=== PATIENT | female | born 1955 | race Caucasian/White ===

== ENCOUNTER 2021-03-15 09:28 | Inpatient (IN) | payer MEDICARE ==
[2021-03-18] MEDS ORDERED: Bupivacaine PF 0.5% 30 ML VIAL ONE (06:22)
[2021-03-18] MEDS ORDERED: Protamine Sulfate 50 MG/5 ML VIAL ONE (06:22)
[2021-03-18] MEDS ORDERED: Dexamethasone 4 mg/ml Vial ONE (06:22)
[2021-03-18] MEDS ORDERED: EPINEPHrine 1 MG/ML AMP ONE (06:22)
[2021-03-18] MEDS ORDERED: Heparin 5,000 UNITS/ML VIAL ONE (06:22)
[2021-03-18] MEDS ORDERED: Fentanyl 250 MCG/5 ML VIAL ONE (07:00)
[2021-03-18] MEDS ORDERED: Phenylephrine 10 MG/ML VIAL ONE (07:01)
[2021-03-18] MEDS ORDERED: Clindamycin/D5W 900 mg/50 ml Premix Bag ONE (07:31)
[2021-03-18] MEDS ORDERED: Ondansetron PF 4 MG/2 ML Vial ONE (07:48)
[2021-03-18] MEDS ORDERED: Glycopyrrolate 0.2 MG/ML 5 ML SYRINGE ONE ×2 (07:48)
[2021-03-18] MEDS ORDERED: Rocuronium Bromide 10 MG/ML (10ML VIAL) ONE (07:48)
[2021-03-18] MEDS ORDERED: PROPOFOL 200 MG/20 ML VIAL ONE (07:48)
[2021-03-18] MEDS ORDERED: PHENYLEPHRINE-NS 100 MCG/ML 10 ML SYRINGE ONE ×2 (07:48→09:26)
[2021-03-18] MEDS ORDERED: Lidocaine 1% PF 5 ML VIAL ONE (07:48)
[2021-03-18] MEDS ORDERED: ePHEDrine 50 MG/ML VIAL ONE (07:48)
[2021-03-18] MEDS: Aspirin Chewable 81 MG TAB PO SCH (09:00)
[2021-03-18] MEDS ORDERED: Ondansetron PF 4 MG/2 ML Vial IVP PRN (09:20)
[2021-03-18] MEDS ORDERED: hydrALAZINE 20 MG/ML VIAL SLOW IVP PRN (09:20)
[2021-03-18] MEDS ORDERED: Phenylephrine 40 MG in Sodium Chloride 0.9% 250 ML 250 ML IVPB PRN ×2 (09:20→10:18)
[2021-03-18] MEDS ORDERED: Fentanyl 100 MCG/2 ML VIAL SLOW IVP PRN (09:20)
[2021-03-18] MEDS ORDERED: Nitroglycerin 50 MG/250 ML BOT 250 ML IVPB PRN (09:20)
[2021-03-18] MEDS ORDERED: Cetirizine HCl 10 MG TAB PO SCH (09:20)
[2021-03-18] MEDS ORDERED: [UNRECOGNIZED DRUG - REMARK] NASAL PRN (09:20)
[2021-03-18] MEDS ORDERED: Acetaminophen 325 MG TAB PO PRN (09:20)
[2021-03-18] MEDS ORDERED: ePHEDrine Sulfate 50 MG/10 ML VIAL ONE (09:26)
[2021-03-18] MEDS ORDERED: ceFAZolin 2 GM/Dextrose 50 ML IVPB ONE (14:06)
[2021-03-18] MEDS: ceFAZolin 2 GM/Dextrose 50 ML 2 GM in Premix Bag 1 BAG IVPB SCH ×2 (14:07→22:08)
[2021-03-18] MEDS: Sodium Chloride 0.9% 1,000 ML IV SCH (16:44)
[2021-03-18] MEDS ORDERED: Montelukast Sodium 10 mg Tablet PO SCH (21:00)
[2021-03-18] MEDS ORDERED: Atorvastatin Calcium 40 MG TAB PO SCH (21:00)
[2021-03-18 21:16] VITALS: BMI 30.5
[2021-03-19] MEDS: Sodium Chloride 0.9% 1,000 ML IV SCH ×2 (03:10→05:05)
[2021-03-19] MEDS: ceFAZolin 2 GM/Dextrose 50 ML 2 GM in Premix Bag 1 BAG IVPB SCH (05:07)
[2021-03-19 08:19] VITALS: TEMP 97.8
[2021-03-19] MEDS: Aspirin Chewable 81 MG TAB PO SCH (08:59)
[2021-03-19] MEDS ORDERED: Non-Formulary Item 1 EACH (Losartan Potassium [Losartan Potassium] 50 MG Tablet) PO SCH (09:00)
[2021-03-19] MEDS ORDERED: Loratadine 10 MG TAB PO SCH (09:00)
[2021-03-19] MEDS ORDERED: Fluticasone Propionate Nasal Spray 16 gm Bottle NASAL SCH (09:00)
[2021-03-19] MEDS ORDERED: Hydrochlorothiazide 25 MG TAB PO SCH (09:00)
[2021-03-19] MEDS ORDERED: Losartan 25 MG TAB PO SCH (09:00)
[2021-03-19] MEDS ORDERED: Non-Formulary Item 1 EACH (Mv-Mn/Folic Ac/Calcium/Vit K1 [Women's 50 Plus Multivit Tab] 1 PO SCH (09:00)
[2021-03-19] MEDS ORDERED: Non-Formulary Item 1 EACH (Hydrochlorothiazide [Hydrochlorothiazide] 12.5 MG Tablet) PO SCH (09:00)
[2021-03-19] MEDS ORDERED: Citrucel 500 MG TAB PO SCH (09:00)
[2021-03-19] MEDS ORDERED: Multivit, Therapeutic 1 TAB PO SCH (09:00)
[2021-03-19] MEDS ORDERED: Clopidogrel Bisulfate 75 MG TAB PO SCH (09:00)
[2021-03-19] MEDS ORDERED: Amlodipine 10 MG TAB PO SCH (21:00)
== END 2021-03-19 10:45 | disposition home or self-care (01) | DRG 36 ==
LOC: SURG A 03-18 06:12 → EDSTATUS 03-18 11:15 → CCU 03-18 20:00
PROVIDERS: ADMIT Thoracic Surgery (Cardiothoracic Vascular Surgery); ATTEND Thoracic Surgery (Cardiothoracic Vascular Surgery)
PROC: 037K3DZ Dilation of Right Internal Carotid Artery with Intraluminal Device, Percutaneous Approach (ICD-10-PCS; principal; 2021-03-18)
DX: I65.23 Occlusion and stenosis of bilateral carotid arteries (principal); I10 Essential (primary) hypertension; E78.2 Mixed hyperlipidemia; Z20.822 Contact with and (suspected) exposure to COVID-19; Z79.82 Long term (current) use of aspirin; Z79.02 Long term (current) use of antithrombotics/antiplatelets; Z79.899 Other long term (current) drug therapy; Z90.710 Acquired absence of both cervix and uterus; Z88.8 Allergy status to other drugs, medicaments and biological substances; Z88.0 Allergy status to penicillin
CPT/HCPCS: 76000; 90471; 90732; C1725; C1776; C1876; C1884; G0009; J0171; J0690; J1100; J1644; J2370; J2405; J2704; J2720; J3010; J3490; J7050; S0020

== ENCOUNTER 2021-03-15 10:52 | Outpatient (CLI) | payer MEDICARE ==
[2021-03-15 12:38] LABS: Hemoglobin 13.3 g/dL (12.0-15.5); Mean Corpuscular HGB CONC 32.4 g/dL (32.0-36.0); Mean Corpuscular Hemoglobin 26.4 pg (27.0-33.0); Mean Corpuscular Volume 81.5 fl (81.6-98.3); Mean Platelet Volume 9.1 fl (7.4-10.4); Platelet Count 402 10x3/uL (150-450); RBC Distribution Width 14.6 % (11.5-14.5); Red Blood Cell (RBC) Count 5.04 10x6/uL (3.90-5.03)
[2021-03-15 12:59] LABS: Anion Gap 16 mmol/L (10-20); BUN (Urea Nitrogen) 14 mg/dL (9.8-20.1); Calc. Creatinine Clearance 0 mL/min (70-130); Calcium 9.4 mg/dL (7.8-10.44); Carbon Dioxide 26 mmol/L (23-31); Chloride 103 mmol/L (98-107); Glucose 102 mg/dL (80-115); Potassium 3.9 mmol/L (3.5-5.1); Sodium 141 mmol/L (136-145)
[2021-03-15 22:54] LABS: SARS-CoV-2 PCR by NAA Not Detected (NotDetected)
== END 2021-03-15 10:53 | disposition home or self-care (01) ==
LOC: LABBT 10:52
PROVIDERS: ATTEND Thoracic Surgery (Cardiothoracic Vascular Surgery)
DX: Z01.818 Encounter for other preprocedural examination (principal); Z20.822 Contact with and (suspected) exposure to COVID-19
CPT/HCPCS: 80048; 85027; 93005; U0003; U0005; 93010

== ENCOUNTER 2022-01-23 11:36 | Outpatient (CLI) | payer MEDICARE ==
[~2022-01-23 11:36] MED LIST: Iopamidol 370 76% 100 ML VIAL ONE
== END 2022-01-23 11:37 | disposition home or self-care (01) ==
LOC: CT 11:36
PROVIDERS: ATTEND Internal Medicine Cardiovascular Disease
DX: R07.9 Chest pain, unspecified (principal); R91.8 Other nonspecific abnormal finding of lung field; N28.1 Cyst of kidney, acquired; N28.9 Disorder of kidney and ureter, unspecified; R59.0 Localized enlarged lymph nodes
CPT/HCPCS: 71260; 82565; Q9967

== ENCOUNTER 2022-06-29 13:33 | Outpatient (CLI) | payer MEDICARE | END 2022-06-29 13:34 | disposition home or self-care (01) | LOC: RAD 13:33 | PROVIDERS: ATTEND Internal Medicine | DX: R06.00 Dyspnea, unspecified (principal) | CPT/HCPCS: 71046 ==

== ENCOUNTER 2023-01-23 09:10 | Outpatient (CLI) | payer MEDICARE | END 2023-01-23 09:11 | disposition home or self-care (01) | LOC: BICCT 09:10 | PROVIDERS: ATTEND Internal Medicine | DX: R91.1 Solitary pulmonary nodule (principal) | CPT/HCPCS: 71250 ==

== ENCOUNTER 2024-02-18 10:54 | Outpatient (CLI) | payer MEDICARE | END 2024-02-18 10:55 | disposition home or self-care (01) | LOC: LABBT 10:54 | PROVIDERS: ATTEND Thoracic Surgery (Cardiothoracic Vascular Surgery) | DX: Z01.818 Encounter for other preprocedural examination (principal); I25.10 Atherosclerotic heart disease of native coronary artery without angina pectoris | CPT/HCPCS: 71046 ==

== ENCOUNTER 2024-02-18 11:00 | Inpatient (IN) | payer MEDICARE ==
[2024-02-18 12:20] LABS: #Basophils 0.06 10x3/uL (0.0-0.2); %Basophils 0.8 % (0.0-1.0); %Lymphocytes 24.8 % (21.0-51.0); %Monocytes 10.5 % (0.0-10.0); %Neutrophils 60.6 % (42.0-75.0); Hematocrit 40.2 % (36.0-47.0); Hemoglobin 13.2 g/dL (12.0-16.0); Mean Corpuscular HGB CONC 32.8 g/dL (32.0-36.0); Mean Corpuscular Hemoglobin 27.1 pg (27.0-31.0); Mean Corpuscular Volume 82.5 fL (78.0-98.0); Mean Platelet Volume 9.6 fL (7.4-10.4); Platelet Count 303 10x3/uL (130-400); RBC Distribution Width 13.9 % (11.5-14.5); Red Blood Cell (RBC) Count 4.87 mill/uL (4.20-5.40)
[2024-02-18 12:40] LABS: Anion Gap 13 mmol/L (10-20); BUN (Urea Nitrogen) 12 mg/dL (9.8-20.1); Calc. Creatinine Clearance 93 mL/min (70-130); Calcium 9.3 mg/dL (7.8-10.44); Carbon Dioxide 24 mmol/L (23-31); Chloride 107 mmol/L (98-107); Estimated GFR 91; Glucose 106 mg/dL (80-115); Potassium 3.2 mmol/L (3.5-5.1); Sodium 141 mmol/L (136-145)
[2024-02-20] MEDS ORDERED: Dexamethasone 4 mg/ml Vial ONE (06:13)
[2024-02-20] MEDS ORDERED: Bupivacaine PF 0.5% 30 ML VIAL ONE (06:13)
[2024-02-20] MEDS ORDERED: PHENYLEPHRINE-NS 100 MCG/ML 10 ML SYRINGE ONE (06:13)
[2024-02-20] MEDS ORDERED: EPINEPHrine 1 MG/ML VIAL ONE (06:13)
[2024-02-20] MEDS ORDERED: Albumin 5% 500 ML ONE (06:14)
[2024-02-20] MEDS ORDERED: Vecuronium 10 MG VIAL ONE (06:28)
[2024-02-20] MEDS ORDERED: Fentanyl 250 MCG/5 ML VIAL ONE (06:28)
[2024-02-20] MEDS ORDERED: Midazolam HCl 2 mg/2 ml Vial ONE ×2 (06:28→08:42)
[2024-02-20] MEDS ORDERED: PROPOFOL 20 ML ONE (06:28)
[2024-02-20] MEDS ORDERED: Rocuronium Bromide 10 MG/ML (10ML VIAL) ONE (06:28)
[2024-02-20] MEDS ORDERED: NOREPINEPHRINE 8 MG/250 ML-D5W 250 ML ONE (06:30)
[2024-02-20] MEDS ORDERED: Vancomycin 1 GM VIAL ONE (06:41)
[2024-02-20] MEDS ORDERED: Mannitol 12.5 GM/50 ML ONE (06:41)
[2024-02-20] MEDS ORDERED: Heparin 30,000 units/30 ml VIAL ONE (06:41)
[2024-02-20] MEDS ORDERED: Calcium Chloride 1 GM/10 ML Abboject SYRINGE ONE (06:41)
[2024-02-20] MEDS ORDERED: Protamine Sulfate 250 MG/25 ML VIAL ONE (06:41)
[2024-02-20] MEDS ORDERED: Thrombin 5000 UNITS/5 ML VIAL ONE (06:41)
[2024-02-20] MEDS ORDERED: Cardioplegic Soln 1,000 ML BAG ONE (06:41)
[2024-02-20] MEDS ORDERED: Heparin 5,000 UNITS/ML VIAL ONE (06:41)
[2024-02-20] MEDS ORDERED: Aminocaproic Acid 5 GM/20 ML VIAL ONE (06:41)
[2024-02-20] MEDS ORDERED: Lidocaine 2% PF 100 mg/5 ml Syringe ONE (06:41)
[2024-02-20] MEDS ORDERED: Potassium Chloride 60 mEq (30 mL) VIAL ONE (06:41)
[2024-02-20] MEDS ORDERED: Magnesium 5 GM/10 ML VIAL ONE (06:41)
[2024-02-20] MEDS ORDERED: Sodium Bicarb 50 mEq/50 ML VIAL ONE (06:41)
[2024-02-20] MEDS ORDERED: Papaverine 60 MG/2 ML VIAL ONE (06:41)
[2024-02-20] MEDS ORDERED: Heparin 10,000 UNITS/1 ML VIAL 30,000 UNITS in Sodium Chloride 0.9% 1,000 ML FS SCH (06:45)
[2024-02-20] MEDS ORDERED: CEFAZOLIN 2 GM VIAL ONE (07:19)
[2024-02-20] MEDS ORDERED: Esmolol 100 MG/10 ML VIAL ONE (07:51)
[2024-02-20] MEDS ORDERED: Protamine Sulfate 50 MG/5 ML VIAL ONE (09:59)
[2024-02-20] MEDS ORDERED: fentaNYL PF 100 MCG/2 ML SYRINGE ONE (10:01)
[2024-02-20 10:30] LABS: Actual Bicarbonate (HCO3a) 22.3 mEq/L (22-28); Base Excess (BEa) -2.1 mEq/L (-2.0 to +3.0); CO2 Tension 37.2 mmHg (35.0-45.0); Calcium, Ionized (arterial) 1.13 mmol/L (1.12-1.30); Carboxyhemoglobin (COHb) 0.5 gm% (0.0-3.0); Hematocrit-ABG 36 % (36.0-47.0); Hemoglobin (Hb) 12.1 g/dL (12.0-16.0); Potassium - ABG Lab 3.79 mmol/L (3.70-5.30); pH, Arterial 7.396 (7.35-7.45)
[2024-02-20 10:32] LABS: Puncture Site Arterial Line
[2024-02-20] MEDS: Albumin 5% 250 ML ONE (10:35)
[2024-02-20] MEDS ORDERED: Guaifenesin DM 100-10/5 ML UDCUP PO PRN (10:39)
[2024-02-20] MEDS ORDERED: fentaNYL 50 mcg/mL 1 mL Vial SLOW IVP PRN ×2 (10:39)
[2024-02-20] MEDS ORDERED: Mag-Al 1200 mg/1200 mg/30 ML UDCUP PO PRN (10:39)
[2024-02-20] MEDS ORDERED: Ipratropium/Albuterol 3 ML NEB NEB PRN (10:39)
[2024-02-20] MEDS ORDERED: Albumin 5% 12.5 GM (250 mL) BOT IVPB PRN (10:39)
[2024-02-20] MEDS ORDERED: Bisacodyl 5 MG TAB PO PRN (10:39)
[2024-02-20] MEDS ORDERED: Bisacodyl 10 MG SUPP PR PRN (10:39)
[2024-02-20] MEDS ORDERED: hydrALAZINE 20 MG/ML VIAL SLOW IVP PRN (10:39)
[2024-02-20] MEDS ORDERED: Nitroglycerin 50 MG/250 ML BOT 250 ML IVPB PRN (10:39)
[2024-02-20] MEDS ORDERED: traMADol HCl 50 MG TAB PO PRN (10:39)
[2024-02-20] MEDS ORDERED: Morphine 2 MG/ML VIAL SLOW IVP PRN (10:39)
[2024-02-20 10:57] LABS: Hemoglobin A1c 5.7 % (4.0-6.0)
[2024-02-20 11:00] LABS: Cardiac Risk 4.1 (Less than 4.5)
[2024-02-20 11:19] LABS: #Basophils 0.09 10x3/uL (0.0-0.2); %Basophils 0.4 % (0.0-1.0); %Eosinophils 0.9 % (0.0-10.0); %Monocytes 5.9 % (0.0-10.0); %Neutrophils 79.6 % (42.0-75.0); Hematocrit 32.5 % (36.0-47.0); Hemoglobin 10.9 g/dL (12.0-16.0); Mean Corpuscular HGB CONC 33.5 g/dL (32.0-36.0); Mean Corpuscular Hemoglobin 27.6 pg (27.0-31.0); Mean Corpuscular Volume 82.3 fL (78.0-98.0); Mean Platelet Volume 9.8 fL (7.4-10.4); Platelet Count 230 10x3/uL (130-400); RBC Distribution Width 13.8 % (11.5-14.5); Red Blood Cell (RBC) Count 3.95 mill/uL (4.20-5.40)
[2024-02-20] MEDS: D5 1/2 NS w/20 mEq KCL 1,000 ML IV SCH (11:28)
[2024-02-20] MEDS: Magnesium 2 GM/50 ML(in water) 2 GM in Premix 1 BAG IVPB SCH (11:29)
[2024-02-20] MEDS: Insulin Regular, Human 100 UNIT/ML 10 ML VIAL SC PRN (11:32)
[2024-02-20] MEDS: Ketorolac Tromethamine 30 MG (1 mL) VIAL IVP SCH (11:35)
[2024-02-20 11:40] LABS: INR-International Normal Ratio 1.4; Prothrombin Time 17.1 sec (12.0-14.7)
[2024-02-20] MEDS: Albumin 5% 12.5 GM (250 mL) BOT IVPB PRN (11:45)
[2024-02-20] MEDS: NOREPINEPHRINE 8 MG/250 ML-D5W 250 ML IVPB PRN (11:53)
[2024-02-20 12:08] LABS: Anion Gap 13 mmol/L (10-20); BUN (Urea Nitrogen) 10 mg/dL (9.8-20.1); Calc. Creatinine Clearance 102 mL/min (70-130); Carbon Dioxide 20 mmol/L (23-31); Chloride 114 mmol/L (98-107); Estimated GFR 95; Glucose 165 mg/dL (80-115); Potassium 3.8 mmol/L (3.5-5.1); Sodium 143 mmol/L (136-145)
[2024-02-20] MEDS: Ondansetron PF 4 MG/2 ML Vial IVP PRN (12:52)
[2024-02-20 15:26] LABS: Actual Bicarbonate (HCO3a) 18.7 mEq/L (22-28); Base Excess (BEa) -3.4 mEq/L (-2.0 to +3.0); CO2 Tension 25.6 mmHg (35.0-45.0); Calcium, Ionized (arterial) 1.08 mmol/L (1.12-1.30); Carboxyhemoglobin (COHb) 0.4 gm% (0.0-3.0); Hematocrit-ABG 35 % (36.0-47.0); Potassium - ABG Lab 3.22 mmol/L (3.70-5.30); pH, Arterial 7.481 (7.35-7.45)
[2024-02-20 15:29] LABS: Puncture Site Arterial Line
[2024-02-20] MEDS: Potassium Chloride 20 MEQ (100 mL) BAG IVPB PRN (15:47)
[2024-02-20] MEDS: CEFAZOLIN 2 GM in Sodium Chloride 0.9% 100 ML IVPB SCH (15:53)
[2024-02-20 16:22] LABS: Hematocrit 33.5 % (36.0-47.0); Hemoglobin 11.1 g/dL (12.0-16.0)
[2024-02-20 16:26] LABS: Potassium 3.5 mmol/L (3.5-5.1)
[2024-02-20] MEDS: Gabapentin 100 MG CAP PO SCH (21:01)
[2024-02-20] MEDS: Famotidine/PF 20 mg/2ml Vial SLOW IVP SCH (21:01)
[2024-02-20] MEDS: Atorvastatin Calcium 40 MG TAB PO SCH (21:01)
[2024-02-20] MEDS: Montelukast Sodium 10 mg Tablet PO SCH (21:02)
[2024-02-21 03:46] LABS: #Basophils Less than 0.03 10x3/uL (0.0-0.2); #Eosinophils Less than 0.03 10x3/uL (0.0-0.7); %Basophils 0.1 % (0.0-1.0); %Lymphocytes 6.3 % (21.0-51.0); %Monocytes 8.7 % (0.0-10.0); %Neutrophils 84.3 % (42.0-75.0); Hematocrit 31.5 % (36.0-47.0); Hemoglobin 10.4 g/dL (12.0-16.0); Mean Corpuscular Hemoglobin 27.5 pg (27.0-31.0); Mean Corpuscular Volume 83.3 fL (78.0-98.0); Mean Platelet Volume 9.6 fL (7.4-10.4); Platelet Count 245 10x3/uL (130-400); RBC Distribution Width 14.2 % (11.5-14.5); Red Blood Cell (RBC) Count 3.78 mill/uL (4.20-5.40)
[2024-02-21 04:01] LABS: Anion Gap 11 mmol/L (10-20); BUN (Urea Nitrogen) 11 mg/dL (9.8-20.1); Calc. Creatinine Clearance 109 mL/min (70-130); Calcium 8.2 mg/dL (7.8-10.44); Carbon Dioxide 22 mmol/L (23-31); Chloride 113 mmol/L (98-107); Estimated GFR 96; Glucose 146 mg/dL (80-115); Potassium 3.9 mmol/L (3.5-5.1); Sodium 142 mmol/L (136-145)
[2024-02-21] MEDS: Pantoprazole DR 40 MG TAB PO SCH (10:02)
[2024-02-21] MEDS: Aspirin 325 MG TAB PO SCH (10:03)
[2024-02-21] MEDS: Enoxaparin 30 MG (0.3 mL) SYRINGE SC SCH (10:03)
[2024-02-21] MEDS: Magnesium 2 GM/50 ML(in water) 2 GM in Premix 1 BAG IVPB SCH (10:04)
[2024-02-21] MEDS: Benzocaine/Menthol 1 LOZ LOZ PO PRN (11:17)
[2024-02-21] MEDS: Acetaminophen 325 MG TAB PO PRN (11:36)
[2024-02-22] MEDS ORDERED: Nitroglycerin 0.4 MG TAB (25 Tab Bottle) SL PRN (08:37)
[2024-02-22] MEDS ORDERED: Mineral Oil ENEMA PR PRN (08:37)
[2024-02-22] MEDS ORDERED: diphenhydrAMINE 25 MG CAP PO PRN (08:37)
[2024-02-22] MEDS ORDERED: Artificial Tear Ophth Sol 15 ML BOT EA EYE PRN (08:37)
[2024-02-22] MEDS ORDERED: Insulin Regular, Human 100 UNIT/ML 10 ML VIAL SC PRN (08:45)
[2024-02-22] MEDS ORDERED: Insulin Reg, Human 100 UNITS in Sodium Chloride 0.9% 100 ML IVPB SCH (08:45)
[2024-02-22] MEDS ORDERED: Dextrose 5% in Water 1,000 ML IV PRN (08:45)
[2024-02-22] MEDS ORDERED: Dextrose 50% Abboject 50 ML SYRINGE SLOW IVP PRN (08:45)
[2024-02-22] MEDS ORDERED: Glucagon 1 MG/ML KIT SC PRN (08:45)
[2024-02-22] MEDS: Metoprolol Tartrate 25 MG TAB PO SCH (10:10)
[2024-02-22] MEDS: traMADol HCl 50 MG TAB PO PRN (20:48)
[2024-02-23] MEDS: Metoprolol Tartrate 25 MG TAB PO SCH (09:19)
[2024-02-23] MEDS: FLU (Fluad Triv) TS24-25 (65UP)/MF59C/PF 45 MCG/0.5 ML Syringe IM ONE (14:56)
[2024-02-24 05:24] VITALS: BMI 28.8
[2024-02-24 12:27] VITALS: TEMP 97.7
[2024-02-24 13:28] VITALS: BP 132/75
== END 2024-02-24 13:20 | disposition home or self-care (01) | DRG 236 ==
LOC: SURG A 02-20 06:09 → CCU 02-20 09:36 → PCU 02-22 15:30
PROVIDERS: ADMIT Thoracic Surgery (Cardiothoracic Vascular Surgery); ATTEND Thoracic Surgery (Cardiothoracic Vascular Surgery)
PROC: 02100Z9 Bypass Coronary Artery, One Artery from Left Internal Mammary, Open Approach (ICD-10-PCS; principal; 2024-02-20)
PROC: 021009W Bypass Coronary Artery, One Artery from Aorta with Autologous Venous Tissue, Open Approach (ICD-10-PCS; 2024-02-20)
PROC: 06BQ4ZZ Excision of Left Saphenous Vein, Percutaneous Endoscopic Approach (ICD-10-PCS; 2024-02-20)
PROC: 5A1221Z Performance of Cardiac Output, Continuous (ICD-10-PCS; 2024-02-20)
PROC: 02L70CK Occlusion of Left Atrial Appendage with Extraluminal Device, Open Approach (ICD-10-PCS; 2024-02-20)
PROC: 4A133R1 Monitoring of Arterial Saturation, Peripheral, Percutaneous Approach (ICD-10-PCS; 2024-02-20)
DX: I25.10 Atherosclerotic heart disease of native coronary artery without angina pectoris (principal); E78.00 Pure hypercholesterolemia, unspecified; I10 Essential (primary) hypertension; G43.909 Migraine, unspecified, not intractable, without status migrainosus; Z90.710 Acquired absence of both cervix and uterus; Z79.899 Other long term (current) drug therapy; Z79.82 Long term (current) use of aspirin; Z88.8 Allergy status to other drugs, medicaments and biological substances; Z88.0 Allergy status to penicillin
CPT/HCPCS: 36416; 36430; 71045; 71046; 80048; 80061; 82805; 83036; 85025; 85610; 85730; 86850; 86900; 86901; 93005; 93010; 93798; 94002; A4311; A4648; C1751; C1889; J0171; J0665; J1100; J1642; J1644; J1650; J1815; J1885; J2003; J2150; J2250; J2405; J2440; J2704; J2720; J3010; J3370; J3475; J3480; J3490; P9045; S0017